=== PATIENT | male | born 1975 | race Caucasian/White ===

== ENCOUNTER → 2018-01-18 | Outpatient (CLI) | payer BC ==
[~2018-01-18] MED LIST: AMBIEN10 MG PO; ANEXSIA 7.5/321 EACH PO; BENADRYL PO; DIPHENHYDRAMINE 25 MG; NEXIUM20 MG PO; NEXIUM40 MG PO; PHENERGAN25 M3 PO; RAPAFLO4 MG PO; TESTOSTERONE; Z.0.BACTRIM DS TAB1 PO; Z.0.ENABLEX7.5 MG PO; Z.0.FLOMAX0.4 MG PO; Z.0.NORCO 10-325 T1 PO; Z.0.URIBEL CAPSULE1 PO
--- NOTE | 2018-01-18 13:23 | Diagnostic Imaging Report ---
PROCEDURE:X-RAY ABDOMEN - KUB COMPARISON:07/16/15. INDICATIONS:CACLULUS OF THE KIDNEY FINDINGS: There is a non-obstructed bowel-gas pattern. There are no calcifications projected over the right renal shadow. The punctate calcification of the left renal shadow may be a calculus. No calcifications along the expected course of the ureters or bladder. There are no calcifications in the pelvis. There are no focal osseous abnormalities. The lung bases are clear. CONCLUSION: Punctate calcification over left renal shadow. No calcifications elsewhere. Dictated by: Diana Kahn M.D. on 01/18/2018 at 13:24 Electronically approved by: Diana Kahn M.D. on 01/18/2018 at 13:24
== END ==
LOC: RAD 10:18
PROVIDERS: ATTEND Urology
DX: N20.0 Calculus of kidney (principal); N23 Unspecified renal colic
CPT/HCPCS: 74018

== ENCOUNTER → 2018-01-20 | Outpatient (CLI) | payer BC ==
--- NOTE | 2018-01-20 10:51 | Diagnostic Imaging Report ---
PROCEDURE: CT ABDOMEN AND PELVIS WITHOUT CONTRAST TECHNIQUE: The abdomen and pelvis were scanned utilizing a multidetector helical scanner from the diaphragm to the lesser trochanter without IV or oral contrast material. Coronal and sagittal multiplanar reformations were obtained. DLP: 398.24 mGy-cm COMPARISON: [facility], DX, ABDOMEN-1VIEW (KUB), 01/18/2018, 10:36. [facility], CT, CT ABDOMEN/PELVIS WO, 04/05/2016, 9:16. INDICATIONS: RENAL STONE FINDINGS: ABSENCE OF INTRAVENOUS CONTRAST DECREASES SENSITIVITY FOR DETECTION OF FOCAL LESIONS AND VASCULAR PATHOLOGY. LOWER THORAX: Normal. HEPATOBILIARY: No focal hepatic lesions. No biliary ductal dilatation. Multiple hepatic cysts again identified. SPLEEN: No splenomegaly. PANCREAS: No focal masses or ductal dilatation. ADRENALS: No adrenal nodules. KIDNEYS/URETERS: There is a 2.5 mm right lower pole renal stone. Left interpolar renal stone measures 4.1 mm with an adjacent 2 mm stone. No hydronephrosis or solid mass lesions. PELVIC ORGANS/BLADDER: Prostate calcification. Vasectomy clips are present. PERITONEUM / RETROPERITONEUM: No free air or fluid. LYMPH NODES: No lymphadenopathy. VESSELS: Unremarkable. GI TRACT: No distention or wall thickening. High density substance within the stomach likely represents calcium containing medication. BONES AND SOFT TISSUES: Unremarkable. IMPRESSION: Bilateral nonobstructing renal lithiasis. Arash Rutledge D.O. Dictated by: Arash Rutledge D.O. on 01/20/2018 at 10:50 Electronically approved by: Arash Rutledge D.O. on 01/20/2018 at 10:50
== END ==
LOC: CT 09:02
PROVIDERS: ATTEND Urology
DX: N20.0 Calculus of kidney (principal)
CPT/HCPCS: 74176

== ENCOUNTER → 2018-02-03 | Day surgery (SDC) | payer BC ==
[2018-02-02 16:38] LABS: BASOPHILS % 0.3 % (0.0-1.0); EOSINOPHILS # (AUTO) 0.1 (0.0-0.4); EOSINOPHILS % 1.1 % (0.0-6.0); HEMOGLOBIN 13.8 g/dL (14.0-18.0); LYMPHOCYTES % 39.6 % (18.0-39.1); MEAN CORPUSCULAR HEMOGLOBIN 32.2 pg (28-32); MEAN CORPUSCULAR HGB CONC 33.7 g/dL (31-35); MEAN CORPUSCULAR VOLUME 95.8 fL (81-99); MONOCYTES # (AUTO) 0.5 (0.2-0.8); MONOCYTES % 6.9 % (4.4-11.3); NEUTROPHILS # (AUTO) 3.9 (2.1-6.9); NEUTROPHILS % 51.8 % (38.7-80.0); PLATELET COUNT 240 x10e3/uL (140-360); RED BLOOD COUNT 4.28 x10e6/uL (4.3-5.7); RED CELL DISTRIBUTION WIDTH 12.1 % (11.7-14.4)
[2018-02-02 17:04] LABS: ANION GAP 10.9 mmol/L (8-16); CALCIUM 8.9 mg/dL (8.4-10.2); CARBON DIOXIDE 30 mmol/L (22-29); CHLORIDE 102 mmol/L (98-107); GLUCOSE 99 mg/dL (74-118); POTASSIUM 3.9 mmol/L (3.5-5.1); SODIUM 139 mmol/L (136-145)
[2018-02-02 17:19] LABS: BLOOD UREA NITROGEN 15 mg/dL (7-26); BUN/CREATININE RATIO 15 (6-25); CREATININE, SERUM 1.02 mg/dL (0.72-1.25); EST GLOMERULAR FILTRATION RATE > 60 ML/MIN (60-)
[~2018-02-03] MED LIST changes: +BELLADONNA/OPIUM 60 MG SUPP PR ONE; +CEFTRIAXONE SOD 1 GM VIAL ONE; +DEXAMETHASONE SOD PHOS INJ 4 MG/ML VIAL ONE; +FENTANYL CITRATE/PF 100MCG/2 ML INJ ONE; +IOPAMIDOL 610MG/1ML 300 MG/ML VIAL IV ONE; +LIDOCAINE HCL 2% LOCAL INJ 5 ML SDV VIAL INJ ONE; +MIDAZOLAM HCL 2 MG/2 ML VIAL ONE; +ONDANSETRON HCL INJ 2 MG/ML VIAL ONE; +PANTOPRAZOLE SO40 MG PO; +PROPOFOL IV EMULSION 10 MG/ML 20 ML VIAL ONE; +SEVOFLURANE INHAL SOLN 250 ML PEN BTL ONE
--- OUTSIDE RECORDS SUMMARY | 2018-02-03 09:43 | XMS REPORT ---
Author Author [facility] Address Unknown Phone Unavailable Care Team Providers Care Mail Superintendent Name Role Phone JUAN UNDERWOOD Unavailable Unavailable Problems This patient has no known problems. Allergies, Adverse Reactions, Alerts This patient has no known allergies or adverse reactions. Medications This patient has no known medications. Results Test Description Test Time Test Comments Text Results Atomic Results Result Comments CT ABDOMEN/PELVIS WO [place] [address] Patient Name: SILVERIO BRADFORD MR #: [id number] : 1975 Age/Sex: 42/M Req #: [id number] Adm Physician: Ordered by: JUAN UNDERWOOD MD Report #: [id number] Location: CT Room/Bed: Procedure: [id number] CT/CT ABDOMEN/PELVIS WO Exam Date: 01/20/18 Exam Time: 924 REPORT STATUS: Signed PROCEDURE: CT ABDOMEN AND PELVIS WITHOUT CONTRAST TECHNIQUE: The abdomen and pelvis were scanned utilizing a multidetector helical scanner from the diaphragm to the lesser trochanter without IV or oral contrast material. Coronal and sagittal multiplanar reformations were obtained. DLP: 398.24 mGy-cm COMPARISON: [facility], DX, ABDOMEN-1VIEW (KUB), 01/18/2018, 10 :36. [facility], CT, CT ABDOMEN/PELVIS WO, 04/05/2016, 9:16. INDICATIONS: RENAL STONE FINDINGS: ABSENCE OF INTRAVENOUS CONTRAST DECREASES SENSITIVITY FOR DETECTION OF FOCAL LESIONS AND VASCULAR PATHOLOGY. LOWER THORAX: Normal. HEPATOBILIARY: No focal hepatic lesions. No biliary ductal dilatation. Multiple hepatic cysts again identified. SPLEEN: No splenomegaly. PANCREAS: No focal masses or ductal dilatation. ADRENALS: No adrenal nodules. KIDNEYS/URETERS: There is a 2.5 mm right lower pole renal stone. Left interpolar renal stone measures 4.1 mm with an adjacent 2 mm stone. No hydronephrosis or solid mass lesions. PELVIC ORGANS/BLADDER: Prostate calcification. Vasectomy clips are present. PERITONEUM / RETROPERITONEUM: No free air or fluid. LYMPH NODES : No lymphadenopathy. VESSELS: Unremarkable. GI TRACT: No distention or wall thickening. High density substance within the stomach likely represents calcium containing medication. BONES AND SOFT TISSUES: Unremarkable. IMPRESSION: Bilateral nonobstructing renal lithiasis. Augusto Rutledge D.O. Dictated by: Augusto Rutledge D.O. on 01/20/2018 at 10:50 Electronically approved by: Augusto Rutledge D.O. on 01/20/2018 at 10:50 Dictated By: AUGUSTO RUTLEDGE DO 1050 Transcribed By: EREN on 01/20/18 1050 COPY TO: JUAN UNDERWOOD MD [facility] ([place] [address] Patient Name: SILVERIO BRADFORD MR #: [id number] : 1975 Age/Sex: 42/M Req #: [id number] Adm Physician: Ordered by: JUAN UNDERWOOD MD Report #: [id number] Location: [facility] Room/Bed: Procedure: [id number] DX/ABDOMEN-1VIEW (KUB) Exam Date: 01/18/18 Exam Time : 1020 REPORT STATUS: Signed PROCEDURE: X-RAY ABDOMEN - KUB COMPARISON: 07/16/15. INDICATIONS: CACLULUS OF THE KIDNEY FINDINGS: There is a non-obstructed bowel-gas pattern. There are no calcifications projected over the right renal shadow. The punctate calcification of the left renal shadow may be a calculus. No calcifications along the expected course of the ureters or bladder. There are no calcifications in the pelvis. There are no focal osseous abnormalities. The lung bases are clear. CONCLUSION: Punctate calcification over left renal shadow. No calcifications elsewhere. Dictated by: Todd Kahn M.D. on 01/18/2018 at 13:24 Electronically approved by: Todd Kahn M.D. on 01/18/2018 at 13:24 Dictated By: TODD KAHN MD 1324 COPY TO: JUAN UNDERWOOD MD
--- NOTE | 2018-02-03 09:48 | Diagnostic Imaging Report ---
PROCEDURE:X-RAY ABDOMEN - KUB COMPARISON:[facility], CT, CT ABDOMEN/PELVIS WO, 01/20/2018, 9:30. [facility], DX, ABDOMEN-1VIEW (KUB), 01/18/2018, 10:36. INDICATIONS:PRE OP STONE SX FINDINGS: Small punctate calcification overlying the left kidney. This is better visualized on the prior abdominal CT. No calcifications overlying the region of the expected courses of the ureter or bladder. There are no dilated loops of bowel to suggest obstruction. There are no masses. There is no evidence of free air. No acute osseous abnormalities are present. CONCLUSION: Punctate left renal stone. Arash Rutledge D.O. Dictated by: Arash Rutledge D.O. on 02/03/2018 at 9:47 Electronically approved by: Arash Rutledge D.O. on 02/03/2018 at 9:47
[2018-02-03] MEDS: MEPERIDINE HCL INJ 50 MG/ML INJ ONE (13:55)
[2018-02-03] MEDS: FENTANYL CITRATE/PF 100MCG/2 ML INJ ONE (14:07)
--- NOTE | 2018-03-12 02:57 | Operative Report ---
DATE OF PROCEDURE: February 03, 2018 PREOPERATIVE DIAGNOSES: 1. Left nephrolithiasis. 2. Possible renal colic. POSTOPERATIVE DIAGNOSES: 1. Left nephrolithiasis. 2. Possible renal colic. OPERATIONS PERFORMED: 1. Cystourethroscopy with bilateral ureteral catheterization and retrograde ureteropyelography (separate procedure performed for the evaluation of the patient's renal colic which he has this noted bilaterally). 2. Interpretation of retrograde ureteropyelography. 3. Supervision of fluoroscopy, no radiologist present. 4. Left-sided extracorporeal shock wave lithotripsy (separate staged procedure performed for the left nephrolithiasis). ANESTHESIA: General. COMPLICATIONS: None. CLINICAL SUMMARY: Jamil Jaime is a 42-year-old man with recurrent urolithiasis. Patient has had pains on both sides and would like to ensure these pains are not renal colic managed. He is aware of the risks of bleeding, infection, injury to adjacent structures, need for additional procedures, and elected to proceed. OPERATIVE PROCEDURE IN DETAIL: Informed consent was verified. Jamil Jaime was properly identified, taken to the operating room and placed on the lithotripsy table in supine position. Anesthesia was uneventfully begun. I could not visualize the right-sided 2-mm stone nor the left-sided 4-mm stone. Therefore, contrast was utilized. The patient was carefully and gently repositioned in dorsal lithotomy position with all pressure points well padded. His genitalia were prepared and draped in usual sterile fashion. A 22.5-Faroese cystoscope sheath with the visual obturator in place was atraumatically inserted in patient's urethra. It was guided down the unremarkable distal urethra through some wide-caliber bands that were not clinically significant at the bulbar region, through the normal sphincteric region and through the normal prostate bed and into the patient's bladder where panendoscopy revealed no suspicious mucosal lesions, no tumors, no stones, and no diverticula. Normally positioned and configured ureteral orifices were identified. A ureteral catheter was used to cannulate the right ureter and retrograde ureteral pyelograms were performed. It was then utilized to cannulate the left ureter and retrograde ureteral pyelograms were performed. Interpretation of retrograde ureteropyelography. Contrast was instilled in retrograde fashion bilaterally. On the right side, there were no tumors, no stones, and no diverticula. Unobstructed drainage was observed fluoroscopically. I could not visualize the 2-mm stone. On the left side, we identified the filling defect, which corresponded to the 4-mm stone noted on CT. No additional stones were identified. No filling defects were identified. Unobstructed drainage was observed fluoroscopically and the ureters were clean from any stone. A total of 3000 shocks were then delivered to the left upper pole stephany containing stone. Following this, a belladonna and opium suppository was placed revealing a 20 gram prostate that is smooth, nonfluctuant without any nodules. Patient was then uneventfully reversed from anesthesia and taken to the recovery room in stable condition. There were no complications to the procedure. He tolerated the procedure well. Explicit postoperative instructions were given. Will follow the patient up in the office. Job#: [id number] cc:SUELLEN REYES DO
== END | disposition home or self-care (01) ==
LOC: OR 09:40
PROVIDERS: ATTEND Urology
DX: N20.0 Calculus of kidney (principal); K58.9 Irritable bowel syndrome, unspecified; R00.1 Bradycardia, unspecified; Z01.810 Encounter for preprocedural cardiovascular examination; Z01.812 Encounter for preprocedural laboratory examination
CPT/HCPCS: 36415; 50590; 74018; 80048; 83970; 84550; 85025; 93005; J0696; J1100; J2001; J2175; J2250; J2405